=== PATIENT | male | born 1950 | race Caucasian/White ===

== ENCOUNTER 2016-10-08 19:02 | Emergency (ER) | payer OTHER, BC ==
[~2016-10-08] VITALS: Ht 175.3 cm; Wt 57.1 kg
[~2016-10-08 19:02] MED LIST: ASPIR-LOW81 MG PO; METOPROLOL TART25 MG PO; OMEPRAZOLE20 M2 PO
[2016-10-08 20:34] VITALS: BP 128/74
== END 2016-10-08 20:48 | disposition home or self-care (01) ==
LOC: ER 19:02
DX: S01.81XA Laceration without foreign body of other part of head, initial encounter (principal); I10 Essential (primary) hypertension; F10.99 Alcohol use, unspecified with unspecified alcohol-induced disorder; Z86.73 Personal history of transient ischemic attack (TIA), and cerebral infarction without residual deficits; Z86.718 Personal history of other venous thrombosis and embolism; Z85.068 Personal history of other malignant neoplasm of small intestine; Z95.2 Presence of prosthetic heart valve; W18.09XA Striking against other object with subsequent fall, initial encounter; Y93.89 Activity, other specified; Y92.89 Other specified places as the place of occurrence of the external cause; Y99.8 Other external cause status